=== PATIENT | female | born 1965 | race Caucasian/White ===

== ENCOUNTER 2024-01-04 09:35 | Emergency (ER) | payer MEDICAID ==
[~2024-01-04] VITALS: Ht 170.2 cm; Wt 101.9 kg
[2024-01-04 10:08] VITALS: BP 15/90; PULSE 86; RESP 18; TEMP 98.5; O2SAT 97
== END 2024-01-04 11:09 | disposition home or self-care (01) ==
LOC: ER 09:36
DX: F10.10 Alcohol abuse, uncomplicated (principal); Y90.9 Presence of alcohol in blood, level not specified
CPT/HCPCS: 99281

== ENCOUNTER 2024-04-14 15:02 | Outpatient (CLI) | payer MEDICAID | END 2024-04-14 23:59 | disposition home or self-care (01) | LOC: RAD 15:02 | PROVIDERS: ATTEND Student in an Organized Health Care Education/Training Program | DX: M17.12 Unilateral primary osteoarthritis, left knee (principal); M25.561 Pain in right knee; M79.645 Pain in left finger(s); M17.11 Unilateral primary osteoarthritis, right knee; M18.12 Unilateral primary osteoarthritis of first carpometacarpal joint, left hand | CPT/HCPCS: 73120; 73564 ==

== ENCOUNTER 2024-06-13 15:22 | Outpatient (CLI) | payer MEDICAID | END 2024-06-13 23:59 | disposition home or self-care (01) | LOC: MRI 15:22 | PROVIDERS: ATTEND Family Medicine | DX: I67.82 Cerebral ischemia (principal); G31.1 Senile degeneration of brain, not elsewhere classified; R25.1 Tremor, unspecified | CPT/HCPCS: 70551 ==

== ENCOUNTER 2024-07-08 10:52 | Outpatient (CLI) | payer MEDICAID | END 2024-07-08 23:59 | disposition home or self-care (01) | LOC: RAD 10:52 | PROVIDERS: ATTEND Student in an Organized Health Care Education/Training Program | DX: R29.898 Other symptoms and signs involving the musculoskeletal system (principal) | CPT/HCPCS: 72110 ==

== ENCOUNTER 2025-08-30 20:15 | Emergency (ER) | payer MEDICAID ==
[~2025-08-30] VITALS: Ht 170.2 cm; Wt 90.9 kg
--- NOTE | 2025-08-30 20:25 | ELECTROCARDIOGRAPH REPORT ---
[facility] Test Date: 2025-08-30 Test Time: 20:23:49 Pat Name: JEFRY ANGULO Department: EMERGENCY ROOM Patient ID: [facility]-[id number] Room: Gender: F [employer]: PM : 1965 Requested By: FRANKIE GOMEZ Order Number: [id number] Reading MD: Dr. Frankie Gomez Measurements Intervals [place] Rate: 69 P: -14 LA: 167 QRS: -1 QRSD: 91 T: 7 QT: 403 QTc: 432 Interpretive Statements Sinus rhythm Low voltage, precordial leads RSR' in V1 or V2, probably normal variant Borderline T wave abnormalities Electronically Signed On 08-30-2025 20:35:[address] Frankie Gomez Please click the below link to view image of tracing.
[2025-08-30 20:43] LABS: MEAN PLATELET VOLUME 9.0 FL (7.4-10.4); RED CELL DISTRIBUTION WIDTH 14.0 % (11.5-14.5)
--- NOTE | 2025-08-30 21:03 | RADIOLOGY REPORT ---
CHEST RADIOGRAPH Indication: CP Technique: 1 view Comparison: None FINDINGS: Lines and Tubes: None. Lungs/Pleura: No focal consolidation, pleural effusion or pneumothorax. Cardiomediastinum: Unremarkable. Other: No acute osseous abnormality. Cervical fixation hardware. IMPRESSION: 1. No acute cardiopulmonary abnormality.
[2025-08-30 21:07] LABS: CREATININE 0.76 MG/DL (0.40-0.90); PRO BRAIN NATRIURETIC PEPTIDE 175 PG/ML (0-125); TOTAL CARBON DIOXIDE 25.0 MMOL/L (24-32); eCRCL 76 ML/MIN; eGFR 77 ML/MIN
[2025-08-30 22:35] VITALS: BP 140/71; PULSE 62; RESP 16; TEMP 97.8; O2SAT 97
== END 2025-08-30 22:48 | disposition left against medical advice (07) ==
LOC: ER 20:16
DX: R06.02 Shortness of breath (principal)
CPT/HCPCS: 36415; 71045; 80048; 83880; 84484; 85025; 93005; 99281